=== PATIENT | female | born 1955 | race African-American/Black ===

== ENCOUNTER 2022-02-18 07:57 | Inpatient (IN) | payer BC ==
[~2022-02-18] VITALS: Ht 167.6 cm; Wt 113.4 kg
[2022-02-18 08:00] VITALS: BP_SYST 152
[2022-02-18] MEDS ORDERED: IBUPROFEN 800 MG TABLET PO ONE (09:30)
[2022-02-18] MEDS ORDERED: HYDROcodone/ACETAMIN 10-325 MG TAB PO ONE (09:30)
[2022-02-18 10:14] LABS: BASOPHILS % (AUTO) 0.5 % (0.0-2.0); EOSINOPHILS # (AUTO) 0.3 K/uL (0.0-0.4); EOSINOPHILS % (AUTO) 3.6 % (0.0-4.0); HEMATOCRIT 31.4 % (36-48); HEMOGLOBIN 10.3 g/dL (12.0-16.0); LYMPHOCYTES # (AUTO) 1.3 K/uL (1.0-5.5); MEAN CORPUSCULAR HEMOGLOBIN 28 pg (27-31); MEAN CORPUSCULAR HGB CONC 33 % (32-36); MEAN CORPUSCULAR VOLUME 85 fL (79.0-98.0); MONOCYTES # (AUTO) 0.5 K/uL (0.0-1.0); MONOCYTES % (AUTO) 7.4 % (1.7-9.3); NEUTROPHILS # (AUTO) 4.9 K/uL (1.8-7.7); NEUTROPHILS % (AUTO) 69.5 % (40.0-70.0); PLATELET COUNT (AUTO) 281 K/uL (130-430); RED BLOOD CELL COUNT(AUTO) 3.71 MIL/uL (4.2-6.2); RED CELL DISTRIBUTION WIDTH 17.5 % (9.0-15.0); WHITE BLOOD COUNT (AUTO) 7.1 K/uL (4.8-10.8)
[2022-02-18 10:27] LABS: CALCIUM 8.1 mg/dL (8.4-11.0); CREATININE 1.08 mg/dL (0.55-1.30); POTASSIUM 3.7 mmol/L (3.5-5.1)
[2022-02-18 10:31] LABS: PROTHROMBIN TIME 10.6 SECS (9.5-12.5)
[2022-02-18 10:38] LABS: ALBUMIN 3.2 g/dL (3.4-4.8); TOTAL BILIRUBIN 0.6 mg/dL (0.0-1.0)
[2022-02-18] MEDS ORDERED: LISI40TA13 PO (10:54)
[2022-02-18] MEDS ORDERED: WELSR150 PO (10:55)
[2022-02-18] MEDS ORDERED: LORazepam 2 MG/ML VIAL IVP PRN (11:30)
[2022-02-18] MEDS ORDERED: NALOXONE HCL 0.4 MG/ML AMP (NARCAN) IVP PRN ×2 (11:30)
[2022-02-18] MEDS ORDERED: HYDROcodone/ACETAMIN 10-325 MG TAB PO PRN (11:30)
[2022-02-18] MEDS ORDERED: ACETAMINOPHEN 325 MG TABLET PO PRN (11:30)
[2022-02-18] MEDS ORDERED: HYDROcodone/ACETAMIN 5-325 MG TAB (NORCO/ VICODIN) PO PRN (11:30)
[2022-02-18] MEDS ORDERED: ONDANSETRON HCL 4 MG/2 ML VIAL IVP PRN (11:30)
[2022-02-18] MEDS ORDERED: NORMAL SALINE 5 ML DISP.SYRIN IVF SCH (14:00)
[2022-02-18] MEDS: NORMAL SALINE 5 ML DISP.SYRIN IVF SCH ×2 (14:00→21:12)
[2022-02-18 16:00] VITALS: BP_SYST 123
[2022-02-18] MEDS: OXYCODONE/ACETAMINOPHEN *10*mg/325 mg TABLET PO PRN ×2 (16:05→20:40)
[2022-02-18 20:36] VITALS: BP_SYST 132
[2022-02-18] MEDS: lisinopriL 20 MG TABLET PO SCH (20:39)
[2022-02-18] MEDS ORDERED: ENOXAPARIN SODIUM 40 MG/0.4 ML SYRINGE SUBCUT SCH (21:00)
[2022-02-19 00:20] VITALS: BP_SYST 129
[2022-02-19] MEDS: OXYCODONE/ACETAMINOPHEN *10*mg/325 mg TABLET PO PRN ×3 (00:46→08:56)
[2022-02-19] MEDS: NORMAL SALINE 5 ML DISP.SYRIN IVF SCH (04:58)
[2022-02-19 06:40] LABS: BASOPHILS % (AUTO) 0.5 % (0.0-2.0); EOSINOPHILS # (AUTO) 0.3 K/uL (0.0-0.4); EOSINOPHILS % (AUTO) 4.7 % (0.0-4.0); HEMATOCRIT 30.5 % (36-48); LYMPHOCYTES # (AUTO) 2.6 K/uL (1.0-5.5); LYMPHOCYTES % (AUTO) 38.8 % (20.5-51.5); MEAN CORPUSCULAR HEMOGLOBIN 28 pg (27-31); MEAN CORPUSCULAR HGB CONC 33 % (32-36); MEAN CORPUSCULAR VOLUME 85 fL (79.0-98.0); MONOCYTES # (AUTO) 0.5 K/uL (0.0-1.0); MONOCYTES % (AUTO) 6.8 % (1.7-9.3); NEUTROPHILS # (AUTO) 3.3 K/uL (1.8-7.7); NEUTROPHILS % (AUTO) 49.2 % (40.0-70.0); PLATELET COUNT (AUTO) 265 K/uL (130-430); RED BLOOD CELL COUNT(AUTO) 3.59 MIL/uL (4.2-6.2); RED CELL DISTRIBUTION WIDTH 17.5 % (9.0-15.0); WHITE BLOOD COUNT (AUTO) 6.7 K/uL (4.8-10.8)
[2022-02-19 07:09] LABS: CALCIUM 8.1 mg/dL (8.4-11.0); CREATININE 1.1 mg/dL (0.55-1.30)
[2022-02-19] MEDS: lisinopriL 20 MG TABLET PO SCH (08:18)
[2022-02-19] MEDS ORDERED: buPROPion HCL 150 MG TABLET.SA PO SCH (09:00)
[2022-02-19] MEDS ORDERED: LOVI40 SUBCUT (10:21)
[2022-02-19] MEDS ORDERED: PERC10 PO (10:21)
[2022-02-19 10:43] VITALS: BP_SYST 126
[2022-02-19 11:24] VITALS: BP_SYST 103
== END 2022-02-19 12:50 | disposition home health service (06) | DRG 536 ==
LOC: SED 07:57 → SMU 10:10
PROVIDERS: ADMIT Preventive Medicine Preventive Medicine/Occupational Environmental Medicine; ATTEND Preventive Medicine Preventive Medicine/Occupational Environmental Medicine
DX: S72.111A Displaced fracture of greater trochanter of right femur, initial encounter for closed fracture (principal); D64.9 Anemia, unspecified; E83.51 Hypocalcemia; I10 Essential (primary) hypertension; E83.52 Hypercalcemia; E88.09 Other disorders of plasma-protein metabolism, not elsewhere classified; Z20.822 Contact with and (suspected) exposure to COVID-19; W01.0XXA Fall on same level from slipping, tripping and stumbling without subsequent striking against object, initial encounter; Z96.659 Presence of unspecified artificial knee joint; R73.9 Hyperglycemia, unspecified; Y93.01 Activity, walking, marching and hiking; Y92.89 Other specified places as the place of occurrence of the external cause; Y99.8 Other external cause status
CPT/HCPCS: 36415; 71045; 72192-TC; 73502; 73560-TC; 76376; 80048; 80053; 85025; 85610-TC; 85730-TC; 93005; 97116-GP; 97530-GP; 99285; J1650; J2405